=== PATIENT | male | born 1985 | race Caucasian/White ===

== ENCOUNTER 2016-07-24 05:05 | Inpatient (IN) | payer OTHER ==
--- NOTE | ~2016-07-24 | EKG ---
PATIENT: FEDERICO GARCIA UNIT #: [id number] Ventricular Rate: 107 BPM Atrial Rate: 107 BPM P-R Interval: 156 ms QRS Duration: 94 ms Q-T Interval: 336 ms QTC Calculation(Bezet): 448 ms P [place]: 70 degrees Calculated R [place]: 90 degrees Calculated T [place]: 58 degrees Diagnosis Line: Sinus tachycardia Diagnosis Line: Rightward axis Diagnosis Line: Otherwise normal ECG Diagnosis Line: When compared with ECG of 24-JAN-2016 13:34, Diagnosis Line: No significant change was found Diagnosis Line: Confirmed by OSVALDO LARSON MD ([id number]) on 07/25/2016 Diagnosis Line: 3:28:18 PM INTERPRETING MD: NEO ALFREDO
--- NOTE | ~2016-07-24 | HP ---
Unit #: [id number] #: [id number] Patient: FEDERICO GARCIA JR [id number] [address] [address] [id number] I MR#: [id number] NAME: FEDERICO GARCIA JR ROOM: 556 Age: 30 Sex: M Admission Date: 07/24/2016 : 1985 Attending Physician: Saúl Razo M.D. Primary Care Physician: [facility]. HISTORY AND PHYSICAL CHIEF COMPLAINT Nausea and vomiting. HISTORY OF PRESENT ILLNESS The patient is a 30-year-old male who presents to [facility] [place] emergency department with complaint of nausea and vomiting. He states it started about 24 hours prior to presentation. He states that he had been feeling generally unwell for several days prior. However, the severe nausea and vomiting was different. He states that there were no alleviating factors. He describes it as severe. It is consistent with his prior histories of diabetic ketoacidosis. PAST MEDICAL HISTORY 1. Gastroparesis. 2. History of [place] tear. 3. Peptic ulcer disease. 4. Peripheral neuropathy. 5. Von Willebrand disease. 6. Diabetes. PAST SURGICAL HISTORY EGD. SOCIAL HISTORY The patient continues to smoke a half pack per day. He denies alcohol and illicit drug use. FAMILY HISTORY Hypertension. ALLERGIES No known drug allergies. HOME MEDICATIONS 1. Protonix 40 mg p.o. b.i.d. 2. Neurontin 1200 mg p.o. daily. 3. Lispro per sliding scale with meals. REVIEW OF SYSTEMS Ten point review of systems was obtained and negative except as per history of present illness. PHYSICAL EXAMINATION GENERAL: The patient is a 30-year-old male in no acute distress. Appears Unit #: [id number] #: [id number] Patient: FEDERICO GARCIA JR stated age. VITALS: Temperature 98.0, pulse 103, blood pressure 150/100. HEENT: Pupils equally round. Extraocular movements intact. Mucous membranes dry. NECK: Supple. No jugular venous distension. No lymphadenopathy. LUNGS: Clear to auscultation bilaterally. HEART: Regular rate and rhythm. No murmurs, gallops or rubs. ABDOMEN: Nontender and nondistended. Positive bowel sounds. EXTREMITIES: No clubbing, cyanosis or edema. Warm and dry. PSYCHIATRIC: Alert and oriented times three. Affect is appropriate. NEUROLOGIC: Cranial nerves II through XII intact grossly. The patient moves all extremities equally and appropriate. SKIN: No rashes, bruises or ulcers. MUSCULOSKELETAL: No muscle or joint pain. No muscle or joint swelling. DIAGNOSTIC STUDIES IMAGING: None. LABORATORY: The patient's blood gas shows pH 7.2, pCO2 14. The patient's glucose on presentation was 553. Serum bicarb was 7. Beta hydroxybutyrate was 10. ASSESSMENT/PLAN 1. Diabetic ketoacidosis. The patient has been started on fluid resuscitation and insulin drip. DKA protocol. 2. Hypertension. Continue home medications. 3. Prophylaxis. The patient was started on SCDs. Dictated by Saúl Razo M.D. HEIDI/brown TD: 07/25/2016 10:45 JOB #: [id number] HISTORY AND PHYSICAL Page 1 of 1 X Saúl Razo MD X HISTORY AND PHYSICAL
--- NOTE | ~2016-07-24 | DS ---
Unit #: [id number] #: [id number] Patient: FEDERICO GARCIA JR [id number] [address] [address] [id number] I MR#: [id number] NAME: FEDERICO GARCIA JR ROOM: 6 Age: 30 Sex: M Admission Date: 07/24/2016 : 1985 Discharge Date: 07/25/2016 Attending Physician: Saúl Razo M.D. Primary Care Physician: [facility] DISCHARGE SUMMARY DISCHARGE DIAGNOSIS Diabetic ketoacidosis. HOSPITAL COURSE The patient is a 30-year-old male, admitted on 07/24/2016 secondary to diabetic ketoacidosis. The patient was noted to have a beta-hydroxybutyrate of 10 and a pH of 7.2 upon presentation. He was started on IV fluids and an insulin drip, admitted to the ICU. The patient's glucose has responded in the expected fashion and the patient's acidosis began to resolve quickly. The patient's anion gap had resolved by 4:00 a.m. the following morning. The patient was given long-acting insulin and diet. The patient has done well tolerating his food and his blood sugars are controlled. As a result, the patient is being discharged home. DISCHARGE MEDICATIONS Gabapentin 300 mg p.o. t.i.d., Protonix 40 mg p.o. daily, Neurontin 1200 mg p.o. daily, Lantus 15 units subcu b.i.d. and Humalog subcu with meals per sliding scale. FOLLOWUP The patient should follow up with his primary care provider within 1 week. DISCHARGE DIET The patient is discharged on diabetic diet. Dictated by... Saúl Razo M.D. CAM/modl TD: 07/25/2016 23:34 JOB #: [id number] Unit #: [id number] #: [id number] Patient: FEDERICO GARCIA JR DISCHARGE SUMMARY Page 1 of 1 X Saúl Razo MD X DISCHARGE SUMMARY
[~2016-07-24 05:05] MED LIST: AUGMENTIN PO; CARAFATE1 G PO; CIPRO PO; GABAPENTIN300 M2 PO; HUMALOG SLIDING SCAL; HUMALOG100 U/M2 SUBQ; HUMALOG100 U/ML; HUMALOG100 U/ML SQ; HUMALOG100 U/ML SUBQ; INSULIN NOVOLOG; INSULIN SYR1 DIS.S10; LANTUS; LANTUS100 U/ML; LANTUS100 U/ML INJ; LANTUS100 U/ML SQ; LANTUS100 U/ML SUBQ; LEVEMIR100 UNITS/ SUBQ; LEVOFLOXACIN500 MG PO; LISINOPRIL10 MG PO; METOCLOPRAMIDE H5 MG PO; NEURONTIN PO; NEURONTIN600 MG PO; NORVASC2.5 MG PO; NOVOLOG100 U/ML SUBQ; NOVOLOG100 UNITS/ INJ; PROTONIX PO; REGLAN5 MG PO; TYLENOL325 M1 PO
[2016-07-24 05:17] LABS: ARTERIAL BLD GAS O2 SATURATION 96.5 % (90.0-100.0); ARTERIAL BLOOD GAS CARBOXY HB 0.3 %sat (0.0-9.0); ARTERIAL BLOOD GAS HCO3 5.6 mmol/L; ARTERIAL BLOOD GAS MET HB 1.2 %sat (0.0-2.0); ARTERIAL BLOOD GAS pH 7.202 (7.350-7.450)
[2016-07-24 05:19] LABS: ARTERIAL BLOOD GAS ALLEN TEST NORMAL; ARTERIAL BLOOD GAS PCO2 14.3 mmHg (35.0-45.0); ARTERIAL DRAW? YES
[2016-07-24 05:20] LABS: ARTERIAL BLOOD GAS ART SITE RIGHT RADIAL
[2016-07-24 05:25] LABS: BASOPHIL# 0.1 X10e3 (0-0.3); BASOPHIL% 0.5 % (0-2.5); EOSINOPHIL% 0.1 % (0.0-7.0); HEMATOCRIT 44.5 % (38.0-50.0); HEMOGLOBIN 14.1 gm/dL (13.0-16.0); LYMPHOCYTE# 1.9 X10e3 (1.0-3.5); LYMPHOCYTE% 6.9 % (17.0-45.0); MEAN CELL VOLUME 92.9 FL (83-96); MEAN CORPUSCULAR HEMOGLOBIN 29.5 PG (28-34); MEAN CORPUSCULAR HGB CONC 31.7 g/dL (30-36); MEAN PLATELET VOLUME 8.5 FL (6.5-11.5); MONOCYTE# 2.3 X10e3 (0-1.0); MONOCYTE% 8.3 % (3.0-12.0); NEUTROPHIL# 22.9 X10e3 (1.5-7.1); NEUTROPHIL% 84.2 % (40-75); PLATELET COUNT 485 X10e3 (140-420); RED BLOOD COUNT 4.79 X10e (3.90-5.60); WHITE BLOOD COUNT 27.2 X10e3 (4.0-10.5)
[2016-07-24 05:27] LABS: DIFF IND YES
[2016-07-24 05:31] LABS: POC - CKMB 2.9 ng/mL (0.0-7.9); POC - TROPONIN <0.05 ng/mL (<=0.05)
[2016-07-24 06:14] LABS: ANISOCYTOSIS SL; PLATELET ESTIMATE INCREASED (NORMAL)
[2016-07-24 06:19] LABS: URINE SOURCE CLEAN CATCH
[2016-07-24 06:38] LABS: URINE APPEARANCE CLEAR; URINE BACTERIA AUWI NEG (NEGATIVE); URINE BILIRUBIN NEG (NEG); URINE BLOOD NEG (NEG); URINE COLOR YELLOW; URINE GLUCOSE >1000 MG/DL (NEG); URINE KETONE 3+ (NEG); URINE LEUKOCYTE ESTERASE NEG (NEG); URINE NITRATE NEG (NEG); URINE PROTEIN 1+ (NEG); URINE SQUAMOUS EPITHELIAL CELL OCC /[HPF]; URINE UROBILINOGEN 0.2 MG/DL (NEG)
[2016-07-24 06:55] LABS: CULTURE INDICATED? NO
[2016-07-24 06:58] LABS: URBCS1 AUWI 0-2 /[HPF] (0-2); URINE GRANULAR CAST 0-2 /[HPF]; URINE MUCUS PRESENT; UWBCS1 AUWI 0-2 (0-5)
[2016-07-24 07:22] LABS: BILIRUBIN, DIRECT 0.1 mg/dL (0.0-0.2); BILIRUBIN,INDIRECT 1.7 mg/dL (0.0-0.9); BILIRUBIN,TOTAL 1.8 mg/dL (0.2-2.0); BUN/CREATININE RATIO 18.66; CALCIUM SERUM 8.7 mg/dL (8.4-10.2); CREATININE SERUM 1.5 mg/dL (0.6-1.4); GLOM FILT RATE Estimated 62.5 mL/min (>60); PROTEIN TOTAL SERUM 6.6 g/dL (6.0-8.3)
[2016-07-24 07:23] LABS: BETA HYDROXYBUTYRATE 10.46 MMOL/L (0.02-0.27); POTASSIUM 6.3 mmol/L (3.5-5.1)
[2016-07-24 12:38] LABS: BUN/CREATININE RATIO 19.16; CREATININE SERUM 1.2 mg/dL (0.6-1.4); GLOM FILT RATE Estimated 81.8 mL/min (>60); PHOSPHOROUS 2.8 mg/dL (2.5-4.6)
[2016-07-24 12:39] LABS: POTASSIUM 4.4 mmol/L (3.5-5.1)
[2016-07-24 17:30] LABS: CALCIUM SERUM 8.4 mg/dL (8.4-10.2); MAGNESIUM 1.8 mg/dL (1.6-3.0); PHOSPHOROUS 2.5 mg/dL (2.5-4.6); POTASSIUM 4.3 mmol/L (3.5-5.1)
[2016-07-24 23:02] LABS: BUN/CREATININE RATIO 18.88; CALCIUM SERUM 8.3 mg/dL (8.4-10.2); CREATININE SERUM 0.9 mg/dL (0.6-1.4); GLOM FILT RATE Estimated 115.8 mL/min (>60); MAGNESIUM 1.8 mg/dL (1.6-3.0); PHOSPHOROUS 1.9 mg/dL (2.5-4.6); POTASSIUM 3.2 mmol/L (3.5-5.1)
[2016-07-25 05:01] LABS: BUN/CREATININE RATIO 18.75; CALCIUM SERUM 8.4 mg/dL (8.4-10.2); CREATININE SERUM 0.8 mg/dL (0.6-1.4); GLOM FILT RATE Estimated 121.6 mL/min (>60); POTASSIUM 3.1 mmol/L (3.5-5.1)
[2016-07-25] MEDS ORDERED: HUMALOG100 U/M2 SUBQ (18:41)
[2016-07-25] MEDS ORDERED: LANTUS100 UNITS/ SUBQ (18:42)
== END 2016-07-25 19:11 | disposition home or self-care (01) | DRG 639 ==
LOC: CED 05:05 → CEDOF 08:13 → CICCU3 14:15 → C5B 07-25 00:53
PROVIDERS: Emergency Medicine; Internal Medicine
DX: E13.10 Other specified diabetes mellitus with ketoacidosis without coma (principal); K31.84 Gastroparesis; I10 Essential (primary) hypertension; Z79.4 Long term (current) use of insulin; F17.210 Nicotine dependence, cigarettes, uncomplicated; Z82.49 Family history of ischemic heart disease and other diseases of the circulatory system
CPT/HCPCS: 36415; 36600; 80048; 80076; 81003; 82010; 82150; 82553; 82803; 82947; 83036; 83690; 83735; 84100; 84132; 84484; 85025; 87040; 93005; 96361; 96374; 99291; J1650; J1815; J3475

== ENCOUNTER 2016-10-06 03:11 | Emergency (ER) | payer OTHER ==
--- NOTE | ~2016-10-06 | EKG ---
PATIENT: FEDERICO GARCIA UNIT #: [id number] Ventricular Rate: 72 BPM Atrial Rate: 72 BPM P-R Interval: 170 ms QRS Duration: 94 ms Q-T Interval: 416 ms QTC Calculation(Bezet): 455 ms P [place]: 70 degrees Calculated R [place]: 90 degrees Calculated T [place]: 72 degrees Diagnosis Line: Normal sinus rhythm with sinus arrhythmia Diagnosis Line: Possible Left atrial enlargement Diagnosis Line: Rightward axis Diagnosis Line: Borderline ECG Diagnosis Line: When compared with ECG of 06-OCT-2016 04:16, Diagnosis Line: (unconfirmed) Diagnosis Line: Previous ECG has undetermined rhythm, needs review Diagnosis Line: Confirmed by BRADY HA MD ([id number]) on Diagnosis Line: 10/06/2016 5:50:42 PM INTERPRETING MD: JOCELYN
[~2016-10-06 03:11] MED LIST changes: +LANTUS100 UNITS/ SUBQ
[2016-10-06 04:35] LABS: ARTERIAL BLOOD GAS HCO3 25.3 mmol/L; ARTERIAL BLOOD GAS PCO2 50.8 mmHg (35.0-45.0); ARTERIAL BLOOD GAS PO2 45.5 mmHg (80.0-100); ARTERIAL BLOOD GAS pH 7.306 (7.350-7.450)
[2016-10-06 04:36] LABS: ARTERIAL BLD GAS O2 SATURATION 75.4 % (90.0-100.0); ARTERIAL BLOOD GAS CARBOXY HB 2.9 %sat (0.0-9.0); ARTERIAL BLOOD GAS MET HB 0.7 %sat (0.0-2.0); ARTERIAL DRAW? NO
[2016-10-06 06:23] LABS: ACETAMINOPHEN <10 ug/mL; ALBUMIN SERUM 3.2 g/dL (3.5-5.0); ALCOHOL BLOOD <5 mg/dL ([, 0]); ALKALINE PHOSPHATASE 91 U/L (32-92); ALT (SGPT) 15 U/L (10-40); AST (SGOT) 20 U/L (10-42); BETA HYDROXYBUTYRATE 0.43 MMOL/L (0.02-0.27); BILIRUBIN, DIRECT <0.1 mg/dL (0.0-0.2); BILIRUBIN,INDIRECT 0.4 mg/dL (0.0-0.9); BILIRUBIN,TOTAL 0.5 mg/dL (0.2-2.0); BLOOD UREA NITROGEN 15 mg/dL (9-23); BUN/CREATININE RATIO 16.66; CALCIUM SERUM 8.4 mg/dL (8.4-10.2); CARBON DIOXIDE 24 mmol/L (22-31); CHLORIDE 107 mmol/L (100-111); CREATININE SERUM 0.9 mg/dL (0.6-1.4); GLUCOSE FASTING 262 mg/dL (70-110); POTASSIUM 3.7 mmol/L (3.5-5.1); PROTEIN TOTAL SERUM 5.9 g/dL (6.0-8.3); SALICYLATE <4.0 mg/dL; SODIUM 138 mmol/L (135-145)
[2016-10-06 06:26] LABS: PROTHROMBIN TIME (PATIENT) 10.4 SECONDS (9.6-11.5)
[2016-10-06 09:11] LABS: URINE SOURCE CLEAN CATCH
[2016-10-06 09:30] LABS: URINE APPEARANCE CLEAR; URINE BILIRUBIN NEG (NEG); URINE BLOOD NEG (NEG); URINE COLOR YELLOW; URINE GLUCOSE >1000 MG/DL (NEG); URINE KETONE NEG (NEG); URINE LEUKOCYTE ESTERASE NEG (NEG); URINE NITRATE NEG (NEG); URINE PROTEIN 3+ (NEG); URINE SPECIFIC GRAVITY 1.029 (1.003-1.035); URINE UROBILINOGEN 0.2 MG/DL (NEG)
[2016-10-06 09:32] LABS: URINE BACTERIA AUWI NEG (NEGATIVE); URINE SQUAMOUS EPITHELIAL CELL NONE SEEN /[HPF]
[2016-10-06 09:35] LABS: CULTURE INDICATED? NO
[2016-10-06 09:46] LABS: AMPHETAMINE POS (NEG); BARBITURATES NEG (NEG); BENZODIAZEPINES NEG (NEG); COCAINE NEG (NEG); MARIJUANA NEG (NEG); OPIATES NEG (NEG); TRICYCLIC ANTIDEPRESSANTS NEG (NEG); U METHADONE NEG (NEG)
== END 2016-10-06 10:20 | disposition home or self-care (01) ==
LOC: CED 03:11
PROVIDERS: Emergency Medicine
DX: E11.65 Type 2 diabetes mellitus with hyperglycemia (principal); F15.10 Other stimulant abuse, uncomplicated; F17.200 Nicotine dependence, unspecified, uncomplicated; Z79.899 Other long term (current) drug therapy
CPT/HCPCS: 36415; 80048; 80076; 80307; 81003; 82010; 82803; 82947; 85610; 85730; 93005; 96361; 96374; 99285; G0480; J2310

== ENCOUNTER 2016-10-23 14:30 | Emergency (ER) | payer OTHER | END 2016-10-23 15:53 | disposition home or self-care (01) | LOC: CED 14:30 | DX: G56.31 Lesion of radial nerve, right upper limb (principal); F17.210 Nicotine dependence, cigarettes, uncomplicated | CPT/HCPCS: 29125; 99283 ==

== ENCOUNTER 2016-11-16 02:56 | Emergency (ER) | payer OTHER ==
[~2016-11-16] VITALS: Ht 177.8 cm; Wt 75.3 kg
--- NOTE | ~2016-11-16 | EKG ---
PATIENT: FEDERICO GARCIA UNIT #: [id number] Ventricular Rate: 120 BPM Atrial Rate: 120 BPM P-R Interval: 150 ms QRS Duration: 92 ms Q-T Interval: 320 ms QTC Calculation(Bezet): 452 ms P [place]: 58 degrees Calculated R [place]: 87 degrees Calculated T [place]: 50 degrees Diagnosis Line: Sinus tachycardia Diagnosis Line: Possible Left atrial enlargement Diagnosis Line: Borderline ECG Diagnosis Line: When compared with ECG of 06-OCT-2016 04:18, Diagnosis Line: Vent. rate has increased BY 48 BPM Diagnosis Line: Confirmed by BRADY HA MD ([id number]) on Diagnosis Line: 11/17/2016 8:18:13 PM INTERPRETING MD: JOCELYN
[2016-11-16 03:45] LABS: POC - CKMB 2.2 ng/mL (0.0-7.9); POC - TROPONIN <0.05 ng/mL (<=0.05)
[2016-11-16 05:26] LABS: BASOPHIL# 0.1 X10e3 (0-0.3); BASOPHIL% 0.8 % (0-2.5); EOSINOPHIL# 0.3 X10e3 (0-0.7); EOSINOPHIL% 2.5 % (0.0-7.0); HEMATOCRIT 42.5 % (38.0-50.0); HEMOGLOBIN 13.8 gm/dL (13.0-16.0); LYMPHOCYTE# 3.8 X10e3 (1.0-3.5); LYMPHOCYTE% 30.2 % (17.0-45.0); MEAN CELL VOLUME 88.1 FL (83-96); MEAN CORPUSCULAR HEMOGLOBIN 28.6 PG (28-34); MEAN CORPUSCULAR HGB CONC 32.5 g/dL (30-36); MEAN PLATELET VOLUME 8.6 FL (6.5-11.5); MONOCYTE# 1.2 X10e3 (0-1.0); MONOCYTE% 9.7 % (3.0-12.0); NEUTROPHIL# 7.2 X10e3 (1.5-7.1); NEUTROPHIL% 56.8 % (40-75); PLATELET COUNT 367 X10e3 (140-420); RED BLOOD COUNT 4.82 X10e (3.90-5.60); RED CELL DISTRIBUTION WIDTH 13.6 % (11.0-15.5); WHITE BLOOD COUNT 12.6 X10e3 (4.0-10.5)
[2016-11-16 05:29] LABS: DIFF IND NO
[2016-11-16 06:01] LABS: URINE SOURCE CLEAN CATCH
[2016-11-16 06:04] LABS: CALCIUM SERUM 9.4 mg/dL (8.4-10.2); CREATININE SERUM 1.3 mg/dL (0.6-1.4); GLOM FILT RATE Estimated 73.8 mL/min (>60); POTASSIUM 4.1 mmol/L (3.5-5.1)
[2016-11-16 06:07] LABS: URINE APPEARANCE CLEAR; URINE BILIRUBIN NEG (NEG); URINE BLOOD NEG (NEG); URINE COLOR YELLOW; URINE GLUCOSE >1000 MG/DL (NEG); URINE KETONE NEG (NEG); URINE LEUKOCYTE ESTERASE NEG (NEG); URINE NITRATE NEG (NEG); URINE PH 5.5 (5-8); URINE PROTEIN 3+ (NEG); URINE SPECIFIC GRAVITY 1.026 (1.003-1.035); URINE UROBILINOGEN 0.2 MG/DL (NEG)
[2016-11-16 06:08] LABS: URINE BACTERIA AUWI NEG (NEGATIVE); URINE SQUAMOUS EPITHELIAL CELL OCC /[HPF]; UWBCS1 AUWI 0-2 (0-5)
[2016-11-16 06:16] LABS: AMPHETAMINE POS (NEG); BARBITURATES NEG (NEG); BENZODIAZEPINES NEG (NEG); COCAINE NEG (NEG); MARIJUANA NEG (NEG); OPIATES NEG (NEG); TRICYCLIC ANTIDEPRESSANTS NEG (NEG); U METHADONE NEG (NEG)
[2016-11-16 06:23] LABS: CULTURE INDICATED? NO
== END 2016-11-16 06:47 | disposition home or self-care (01) ==
LOC: CED 02:56
PROVIDERS: Emergency Medicine
DX: E10.649 Type 1 diabetes mellitus with hypoglycemia without coma (principal); S00.512A Abrasion of oral cavity, initial encounter; F17.200 Nicotine dependence, unspecified, uncomplicated; X58.XXXA Exposure to other specified factors, initial encounter
CPT/HCPCS: 36415; 80048; 80307; 81003; 82553; 82947; 84484; 85025; 93005; 96360; 99285